=== PATIENT | male | born 1980 | race Caucasian/White ===

== ENCOUNTER 2016-06-27 09:48 | Emergency (ER) | payer SELFPAY ==
[~2016-06-27] VITALS: Ht 180.3 cm; Wt 68.0 kg
[~2016-06-27 09:48] MED LIST: CELE40TA PO; LURA20TA PO
[2016-06-27 10:00] VITALS: BP 135/90; PULSE 92; RESP 16; TEMP 98.1; O2SAT 97
[2016-06-27] MEDS ORDERED: SERO25TA PO (10:04)
--- NOTE | 2016-06-27 10:08 | PD ---
HPI Chief Complaint: Medical Clearance Time Seen by Provider: 10:08 Travel History International Travel<30 days: No Contact w/Intl Traveler<30days: No Traveled to known affect area: No PFSH Past Medical History Depression: Yes Diminished Hearing: Yes Psychiatric: Yes Past Surgical History Abdominal Surgery: Yes Ear Surgery: Yes (TUBES) Oral Surgery: Yes (JAW) Other Surgery: Yes (Intestine repair) Social History Alcohol Use: No Tobacco Use: Yes (1PPD) Substance Use: No Allergies-Medications (Allergen,Severity, Reaction): Coded Allergies: No Known Allergies (Unverified , 06/27/16) Reported Meds & Prescriptions Reported Meds & Active Scripts Active Reported Seroquel (Quetiapine Fumarate) 25 Mg Tab 25 Mg PO BID Celexa (Citalopram Hydrobromide) 40 Mg Tab 40 Mg PO DAILY Data Data Last Documented VS Vital Signs Date Time Temp Pulse Resp B/P Pulse Ox O2 Delivery O2 Flow Rate FiO2 06/27/16 10:00 98.1 92 16 135/90 97 Orders Complete Blood Count With Diff (06/27/16 10:22) Comprehensive Metabolic Panel (06/27/16 10:22) Iv Access Insert/Monitor (06/27/16 10:22) Sodium Chloride 0.9% Flush (Ns Flush) (06/27/16 10:30) Ct Soft Tiss Neck W Iv Cont (06/27/16 ) Flaco Martinez Jun 27, 2016 10:08
[2016-06-27 10:30] VITALS: BP 138/88; PULSE 76; RESP 18; O2SAT 99
[2016-06-27] MEDS ORDERED: SODIUM CHLORIDE 0.9% FLUSH 5 ML FLUSH IVF PRN (10:30)
[2016-06-27 10:57] LABS: AUTOMATED NEUTROPHIL # 2.6 TH/MM3 (1.8-7.7); BASOPHIL % 0.9 % (0.0-2.0); EOSINOPHIL # 0.3 TH/MM3 (0-0.4); EOSINOPHIL % 6.1 % (0.0-4.0); HEMATOCRIT 46.1 % (39.0-51.0); HEMO FLAGS DIFF FINAL; LYMPH % 24.5 % (9.0-44.0); LYMPHOCYTE # 1.1 TH/MM3 (1.0-4.8); MEAN CELL VOLUME 87.2 FL (80.0-100.0); MEAN CORPUSCULAR HEMOGLOBIN 30.4 PG (27.0-34.0); MEAN CORPUSCULAR HGB CONC 34.8 % (32.0-36.0); MONO % 8.4 % (0.0-8.0); NEUT % 60.1 % (16.0-70.0); PLATELET COUNT 232 TH/MM3 (150-450); RED BLOOD COUNT 5.29 MIL/MM3 (4.50-5.90); RED CELL DISTRIBUTION WIDTH 13.9 % (11.6-17.2); WHITE BLOOD COUNT 4.4 TH/MM3 (4.0-11.0)
[2016-06-27 11:13] LABS: ANION GAP 7 MEQ/L (5-15); AST (GOT) 18 U/L (15-37); BICARBONATE 27.4 MEQ/L (21.0-32.0); BLOOD UREA NITROGEN 5 MG/DL (7-18); CHLORIDE 107 MEQ/L (98-107); GLOMERULAR FILTRATION RATE 71 ML/MIN (>89); POTASSIUM 3.9 MEQ/L (3.5-5.1); SODIUM (NA) 141 MEQ/L (136-145)
[2016-06-27 11:16] LABS: ALKALINE PHOSPHATASE 47 U/L (45-117); ALT (GPT) 23 U/L (12-78); TOTAL BILIRUBIN ADULT 0.6 MG/DL (0.2-1.0)
[2016-06-27] MEDS ORDERED: IOHEXOL 350 MG/ML 10 ML VIAL (for RAD DIAG) IV ONE (11:28)
--- NOTE | 2016-06-27 11:47 | RADRPT ---
EXAM DATE/TIME: 06/27/2016 11:24 [facility] COMPARISON: No previous studies available for comparison. INDICATIONS : Painful swelling left posterior neck IV CONTRAST: 60 cc Omnipaque 350 (iohexol) IV RADIATION DOSE: 24.13 CTDIvol (mGy) MEDICAL HISTORY : None SURGICAL HISTORY : None. ENCOUNTER: Initial ACUITY: 3 days PAIN SCALE: 5/10 LOCATION: Left neck TECHNIQUE: Volumetric scanning of the neck was performed. Using automated exposure control and adjustment of th e mA and/or kV according to patient size, radiation dose was kept as low as reasonably achievable to obtain optimal diagnostic quality images. FINDINGS: There is very minimal nonspecific adenopathy in the posterior triangle of the neck. There is very mi nimal subcutaneous induration in the left posterior neck without defined abscess. The mid and low neck is unremarkable. 3 - 4 mm hypodensities are seen in both the right and left lobe of the thyroid. The lung apex is clear. CONCLUSION: 1. Induration posteriorly left neck, nonspecific, with very minimal nonspecific adenopathy. Patient may have a small suppurative lymph node measuring less than 5 mm in the posterior left neck. Stu Ordaz MD FACR on June 27, 2016 at 11:39 Board Certified Radiologist. This report was verified electronically.
[2016-06-27] MEDS ORDERED: BACT800T5 PO (12:06)
--- NOTE | 2016-06-27 12:07 | PD ---
HPI Chief Complaint: Medical Clearance Time Seen by Provider: 10:08 Travel History International Travel<30 days: No Contact w/Intl Traveler<30days: No Traveled to known affect area: No History of Present Illness HPI Is a 35-year-old male presents emergency department for evaluation of pain on the left posterior neck as well as mild swelling. He is seen very briefly by PA and fast track was moved up to a medical bed when CAT scan was indicated. Patient states she's been having some mild swelling over the left posterior neck for the past few days and some mild tenderness. He denies any draining lesion denies any redness to the skin fevers abdominal pain nausea vomiting diarrhea. Patient wanted to see what it was and came to the emergency department. States she's never had similar in the past. States gradually worsening. Pain is mild. PFSH Past Medical History Anxiety: Yes Depression: Yes Diminished Hearing: Yes Psychiatric: Yes (PTSD) Tetanus Vaccination: Unknown Influenza Vaccination: Yes Past Surgical History Abdominal Surgery: Yes Ear Surgery: Yes (TUBES) Oral Surgery: Yes (JAW) Other Surgery: Yes (Intestine repair) Social History Alcohol Use: No Tobacco Use: Yes (1PPD) Substance Use: No Allergies-Medications (Allergen,Severity, Reaction): Coded Allergies: No Known Allergies (Unverified , 06/27/16) Reported Meds & Prescriptions Reported Meds & Active Scripts Active Bactrim DS (Sulfamethoxazole-Trimethoprim) 800-160 Mg Tab 1 Tab PO BID 7 Days Reported Seroquel (Quetiapine Fumarate) 25 Mg Tab 25 Mg PO BID Celexa (Citalopram Hydrobromide) 40 Mg Tab 40 Mg PO DAILY Review of Systems Except as stated in HPI: all other systems reviewed are Neg Physical Exam Narrative GENERAL: Well-developed well-nourished apparent distress] SKIN: Warm and dry. There is some boggy fluctuance over the left posterior neck just beneath the hairline. Probably extends another 6 cm inferiorly from the hairline. There is no erythema no lesion overlying this boggy area. Minimally tender to palpation. There is full nontender range of motion of the neck. No lymphadenopathy is appreciated. HEAD: Atraumatic. Normocephalic. EYES: Pupils equal and round. No scleral icterus. No injection or drainage. ENT: No nasal bleeding or discharge. Mucous membranes pink and moist. NECK: Trachea midline. No JVD. CARDIOVASCULAR: Regular rate and rhythm. No murmur appreciated. RESPIRATORY: No accessory muscle use. Clear to auscultation. Breath sounds equal bilaterally. GASTROINTESTINAL: Abdomen soft, non-tender, nondistended. Hepatic and splenic margins not palpable. MUSCULOSKELETAL: No obvious deformities. No clubbing. No cyanosis. No edema. NEUROLOGICAL: Awake and alert. No obvious cranial nerve deficits. Motor grossly within normal limits. Normal speech. PSYCHIATRIC: Appropriate mood and affect; insight and judgment normal. Denies suicidal homicidal ideation or audiovisual examinations. Data Data Last Documented VS Vital Signs Date Time Temp Pulse Resp B/P Pulse Ox O2 Delivery O2 Flow Rate FiO2 06/27/16 13:10 100 06/27/16 10:30 76 18 138/88 06/27/16 10:00 98.1 Orders Complete Blood Count With Diff (06/27/16 10:22) Comprehensive Metabolic Panel (06/27/16 10:22) Iv Access Insert/Monitor (06/27/16 10:22) Sodium Chloride 0.9% Flush (Ns Flush) (06/27/16 10:30) Ct Soft Tiss Neck W Iv Cont (06/27/16 ) Iohexol 350 Inj (Omnipaque 350 Inj) (06/27/16 11:28) Ibuprofen (Motrin) (06/27/16 12:15) Labs Laboratory Tests Test 06/27/16 10:40 White Blood Count 4.4 TH/MM3 Red Blood Count 5.29 MIL/MM3 Hemoglobin 16.1 GM/DL Hematocrit 46.1 % Mean Corpuscular Volume 87.2 FL Mean Corpuscular Hemoglobin 30.4 PG Mean Corpuscular Hemoglobin 34.8 % Concent Red Cell Distribution Width 13.9 % Platelet Count 232 TH/MM3 Mean Platelet Volume 8.6 FL Neutrophils (%) (Auto) 60.1 % Lymphocytes (%) (Auto) 24.5 % Monocytes (%) (Auto) 8.4 % Eosinophils (%) (Auto) 6.1 % Basophils (%) (Auto) 0.9 % Neutrophils # (Auto) 2.6 TH/MM3 Lymphocytes # (Auto) 1.1 TH/MM3 Monocytes # (Auto) 0.4 TH/MM3 Eosinophils # (Auto) 0.3 TH/MM3 Basophils # (Auto) 0.0 TH/MM3 CBC Comment DIFF FINAL Differential Comment Sodium Level 141 MEQ/L Potassium Level 3.9 MEQ/L Chloride Level 107 MEQ/L Carbon Dioxide Level 27.4 MEQ/L Anion Gap 7 MEQ/L Blood Urea Nitrogen 5 MG/DL Creatinine 1.16 MG/DL Estimat Glomerular Filtration 71 ML/MIN Rate Random Glucose 97 MG/DL Calcium Level 9.3 MG/DL Total Bilirubin 0.6 MG/DL Aspartate Amino Transf 18 U/L (AST/SGOT) Alanine Aminotransferase 23 U/L (ALT/SGPT) Alkaline Phosphatase 47 U/L Total Protein 7.5 GM/DL Albumin 4.3 GM/DL [facility] Medical Decision Making Medical Screen Exam Complete: Yes Emergency Medical Condition: Yes Differential Diagnosis Abscess, cellulitis, cysts, lymphadenopathy. Narrative Course Patient was roomed in the emergency department, my initial evaluation was offered pain medicine and declined. However later he did desire some ibuprofen. CBC and CMP were ordered and CBC is within normal limits, chemistry is also within normal limits. Last [address] 06/27/16 0000 Signed Impressions: Service Date/Time: Monday, June 27, 2016 11:24 - CONCLUSION: 1. Induration posteriorly left neck, nonspecific, with very minimal nonspecific adenopathy. Patient may have a small suppurative lymph node measuring less than 5 mm in the posterior left neck. Stu Ordaz MD FACR These results were discussed the patient and I see no drainable fluid collection in the CT. There is no overlying erythema. Recommended that he have a trial of antibiotic therapy and then follow up with either the health Department this department or a primary care physician. He is agreeable to this course of action. He was discharged in no apparent distress. Diagnosis Primary Impression: Neck pain Med/Other Pt SpecificInfo: Prescription(s) given Scripts Sulfamethoxazole-Trimethoprim (Bactrim DS)800-160 Mg Tab1 Tab PO BID 7 Days Ref 0 Prov:Tomás Hopkins MD 06/27/16 Disposition: 01 DISCHARGE HOME Condition: Stable Tomás Hopkins MD Jun 27, 2016 12:07
[2016-06-27] MEDS ORDERED: IBUPROFEN 600 MG TAB PO ONE (12:15)
== END 2016-06-27 13:48 | disposition home or self-care (01) ==
LOC: NEPC 09:48
DX: M54.2 Cervicalgia (principal); F17.210 Nicotine dependence, cigarettes, uncomplicated
CPT/HCPCS: 70491; 80053; 85025; 99283; Q9967